=== PATIENT | male | born 1985 | race African-American/Black ===

== ENCOUNTER 2019-09-25 15:06 | Emergency (ER) | payer OTHER, SELFPAY ==
[~2019-09-25] VITALS: Ht 188 cm; Wt 77.1 kg
[~2019-09-25 15:06] MED LIST: AMOXICILLIN500 MG ORAL; AUGMENTIN 875-1 EAC1 ORAL; NKM; NORCO 5-325 TA1 EACH ORAL
--- NOTE | 2019-09-25 15:33 | NUR ---
ED Nurse Note: Pt ambulated to ed c/o left lower gum pain x few weeks. pt denies injury to site.
[2019-09-25 15:34] VITALS: BP 114/68
--- NOTE | 2019-09-25 15:55 | Emergency Room Report ---
History of Present Illness General Chief Complaint: Pain Source: Patient Present Illness HPI 34-year-old male presents to the emergency department complaining of 5 out of 10 severity pain to the left lower gums progressive x1 week. Patient reports history of poor dentition and previous dental infections. Patient reports noncompliance with dental follow-up. He is also reporting swollen lymph nodes greater on the left. Patient denies fevers or chills. He states he has been taking Motrin without relief. He denies pain or difficulty swallowing. He denies changes in his voice. He reports smoking hx. Allergies: Coded Allergies: PENICILLINS (Verified Allergy, Unknown, 09/25/19) COVID-19 Screening Contact w/high risk pt: No Experienced COVID-19 symptoms?: No COVID-19 Testing performed SYSTEMS PROTECTION TECHNICIAN: No Patient History Past Medical History: see triage record Past Surgical History: none Pertinent Family History: none Social History: Reports: smoking Immunizations: UTD Reviewed Nursing Documentation: PMH: Agreed; PSxH: Agreed Nursing Documentation-PMH Past Medical History: No Stated History Review of Systems All Other Systems: negative except mentioned in HPI Physical Exam Vital Signs Date Time Temp Pulse Resp B/P (MAP) Pulse Ox O2 Delivery O2 Flow Rate FiO2 09/25/19 15:16 98.8 59 16 114/68 (83) 99 Room Air Sp02 EP Interpretation: reviewed, normal General Appearance: no apparent distress, alert, GCS 15, non-toxic Head: normocephalic, atraumatic Eyes: bilateral eye normal inspection, bilateral eye PERRL ENT: hearing grossly normal, normal voice, other - Poor dentition. Several decaying broken molars. there is tenderness on percussion. erythema of the gums surrounding the affected teeth numbers 17-20 , no palpable fluctuance. There is no facial ST swelling. Neck: full range of motion Respiratory: chest non-tender, lungs clear, normal breath sounds, speaking full sentences Cardiovascular #1: regular rate, rhythm, no edema Gastrointestinal: normal bowel sounds, non tender, soft Rectal: deferred Genitourinary: normal inspection Musculoskeletal: back normal, normal range of motion, gait/station normal, non- tender Neurologic: alert, motor strength/tone normal, oriented x3, sensory intact, responsive, speech normal Psychiatric: judgement/insight normal Lymphatic: no adenopathy Medical Decision Making PA Attestation Dr. Cárdenas is my supervising Physician whom patient management has been discussed with. Diagnostic Impression: Primary Impression: Dental infection ER Course 34-year-old male presents to the emergency department complaining of 5 out of 10 severity pain to the left lower gums progressive x1 week. Patient reports history of poor dentition and previous dental infections. Patient reports noncompliance with dental follow-up. He is also reporting swollen lymph nodes greater on the left. Patient denies fevers or chills. He states he has been taking Motrin without relief. He denies pain or difficulty swallowing. He denies changes in his voice. He reports smoking hx. Ddx considered but are not limited to cellulitis, dental abscess, orbital cellulitis, d/l tooth, dental pain. trigeminal neuralgia Vital signs: are WNL, pt. is afebrile H&PE are most consistent with dental infection, no evidence of facial cellulitis or abscess formation. ORDERS: none required at this time, the diagnosis is clinical ED INTERVENTIONS: None required at this time. -I do not identify an emergent condition at this time. With current presentation , pt. is stable for close outpatient follow up and conservative treatment. D/ w pt. to return promptly to ED with worsening or new symptoms.- Pt. verbalizes' understanding and agreement with proposed treatment plan. DISCHARGE: At this time pt. is stable for d/c to home. Will provide printed patient care instructions, and any necessary prescriptions. Care plan and follow up instructions have been discussed with the patient prior to discharge. Last Vital Signs Date Time Temp Pulse Resp B/P (MAP) Pulse Ox O2 Delivery O2 Flow Rate FiO2 09/25/19 15:34 98.8 76 16 114/68 99 Room Air Disposition: HOME, SELF-CARE Condition: Stable Scripts Acetaminophen With Codeine (T#3) (TYLENOL #3 TAB*) Y Tab 1 TAB ORAL Q6H PRN for For Pain, #9 TAB Prov: Lela Britton 09/25/19 Clindamycin Hcl (CLINDAMYCIN HCL) 300 Mg Capsule 300 MG ORAL FOUR TIMES A DAY for 7 Days, #28 CAP Prov: Lela Britton 09/25/19 Patient Instructions: Dental Abscess, [id number], Dental Pain, [id number] Additional Instructions: Take medications as directed. Do not drink alcohol, drive, or operate heavy machinery while taking Tylenol # 3 as this may cause drowsiness. Follow up with a Dentist in 3-5 days, even if your symptoms have resolved. * * --Please review list of Dental clinics, if you do not already have a Dentist Return sooner to ED if new symptoms occur, or current symptoms become worse. - Please note that this Emergency Department Report was dictated using [employer] consultant technology software, occasionally this can lead to erroneous entry secondary to interpretation by the dictation equipment. Lela Britton Sep 25, 2019 15:55
[2019-09-25] MEDS ORDERED: ACETAMINOPHEN-1 EAC1 ORAL (15:58)
[2019-09-25] MEDS ORDERED: CLINDAMYCIN HC300 MG ORAL (15:58)
[2019-09-25] MEDS ORDERED: Clindamycin 150mg cap ORAL ONE (16:00)
[2019-09-25 16:05] VITALS: BP 119/72
--- NOTE | 2019-09-25 16:05 | NUR ---
ER DISCHARGE NOTE: Patient is cleared to be discharged per ERMD, pt is aox4, on room air, with stable vital signs. pt was given dc and prescription instructions, pt was able to verbalize understanding, pt id band removed. pt is able to ambulate with steady gait. pt took all belongings.
== END 2019-09-25 16:03 | disposition home or self-care (01) ==
LOC: EMR 15:50
DX: K04.7 Periapical abscess without sinus (principal); Z88.0 Allergy status to penicillin; F17.200 Nicotine dependence, unspecified, uncomplicated
CPT/HCPCS: 99282